=== PATIENT | female | born 1995 | race Two or more races ===

== ENCOUNTER 2019-06-18 14:21 | Emergency (ER) | payer OTHER ==
[~2019-06-18] VITALS: Ht 157.5 cm; Wt 61.2 kg
[2019-06-18] MEDS ORDERED: BEYAZ 28 TABLE1 EACH (14:29)
== END 2019-06-18 18:04 | disposition home or self-care (01) ==
LOC: ER 14:21
DX: R14.3 Flatulence (principal); R10.13 Epigastric pain

== ENCOUNTER 2020-01-25 08:47 | Outpatient (CLI) | payer OTHER ==
[~2020-01-25 08:47] MED LIST: BEYAZ 28 TABLE1 EACH
== END 2020-01-25 15:00 | disposition home or self-care (01) ==
LOC: LAB 08:47
DX: D64.89 Other specified anemias (principal); E03.8 Other specified hypothyroidism; N93.9 Abnormal uterine and vaginal bleeding, unspecified

== ENCOUNTER 2020-01-25 09:55 | Outpatient (CLI) | payer OTHER | END 2020-01-25 09:57 | disposition home or self-care (01) | LOC: SONOGRAMA 09:55 | DX: N93.9 Abnormal uterine and vaginal bleeding, unspecified (principal); N64.4 Mastodynia ==

== ENCOUNTER 2020-02-16 08:47 | Outpatient (CLI) | payer OTHER | END 2020-02-16 08:49 | disposition home or self-care (01) | LOC: SONOGRAMA 08:47 | PROVIDERS: ATTEND Pathology Anatomic Pathology | DX: N63.20 Unspecified lump in the left breast, unspecified quadrant (principal) ==

== ENCOUNTER 2021-05-28 08:00 | Outpatient (CLI) | payer OTHER | END 2021-05-28 08:30 | disposition home or self-care (01) | LOC: PPH VACUNA 08:00 | PROVIDERS: ATTEND Emergency Medicine Pediatric Emergency Medicine | DX: Z23 Encounter for immunization (principal) ==

== ENCOUNTER 2021-07-15 14:18 | Outpatient (CLI) | payer OTHER | END 2021-07-15 14:21 | disposition home or self-care (01) | LOC: SONOGRAMA 14:18 | DX: N60.11 Diffuse cystic mastopathy of right breast (principal); N60.12 Diffuse cystic mastopathy of left breast; N64.4 Mastodynia ==

== ENCOUNTER 2021-08-22 09:23 | Emergency (ER) | payer OTHER ==
[~2021-08-22] VITALS: Ht 157.5 cm; Wt 59.0 kg
[2021-08-22] MEDS ORDERED: NIKKI 3 MG-0.01 EACH PO (09:39)
[2021-08-22] MEDS ORDERED: AZITHROMYCIN1 GM PO (15:32)
[2021-08-22] MEDS ORDERED: MEDROLPACK PO (15:32)
== END 2021-08-22 15:39 | disposition home or self-care (01) ==
LOC: ER 09:23
DX: J06.9 Acute upper respiratory infection, unspecified (principal); J02.8 Acute pharyngitis due to other specified organisms; Z20.822 Contact with and (suspected) exposure to COVID-19

== ENCOUNTER 2022-04-10 12:32 | Outpatient (CLI) | payer OTHER ==
[~2022-04-10 12:32] MED LIST changes: +AZITHROMYCIN1 GM PO; +MEDROLPACK PO; +NIKKI 3 MG-0.01 EACH PO
== END 2022-04-10 12:35 | disposition home or self-care (01) ==
LOC: SONOGRAMA 12:32
DX: N64.4 Mastodynia (principal)

== ENCOUNTER 2022-05-09 08:19 | Outpatient (CLI) | payer OTHER | END 2022-05-09 15:45 | disposition home or self-care (01) | LOC: SONOGRAMA 08:19 | PROVIDERS: ATTEND Obstetrics & Gynecology | DX: N63.12 Unspecified lump in the right breast, upper inner quadrant (principal) ==

== ENCOUNTER 2022-05-14 10:00 | Outpatient (CLI) | payer OTHER | END 2022-05-14 10:05 | disposition home or self-care (01) | LOC: PPH VACUNA 10:00 | PROVIDERS: ATTEND Emergency Medicine Pediatric Emergency Medicine | DX: Z23 Encounter for immunization (principal) ==